=== PATIENT | female | born 1990 | race Caucasian/White ===

== ENCOUNTER 2021-03-26 18:11 | Inpatient (IN) ==
[2021-03-26] MEDS ORDERED: Lactated Ringers 1000 ml BAG 1,000 ML IV ONE (19:30)
[2021-03-26] MEDS ORDERED: Buffered Lidocaine 1% SYRIN 1 ml INTRADERM ONE (19:30)
[2021-03-26] MEDS ORDERED: Dinoprostone 10 MG VAG.SUPP VAGINAL ONE (19:30)
[2021-03-26] MEDS ORDERED: Lactated Ringers 1000 ml BAG 1,000 ML IV SCH (20:00)
[2021-03-26 20:49] LABS: Urine Benzodiazepine Screen None Detected (None Detect); Urine Cannabinoids Screen None Detected (None Detect); Urine Opiates Screen None Detected (None Detect)
[2021-03-26 21:48] LABS: ABS Lymphocytes 1.7 10^3/ul (1.0-4.8); ABS Neutrophils 13.9 10^3/ul (1.5-7.7); Eosinophil % 0.3 %; Hematocrit 35 % (35-47); Hemoglobin 12.1 g/dL (12.0-16.0); Lymphocyte % 10.3 %; Mean Corpuscular HGB Conc 35 g/dL (31-36); Mean Corpuscular Hemoglobin 32 pg (27-31); Mean Corpuscular Volume 93 fL (80-97); Mean Platelet Volume 9.4 fL (7.4-10.4); Platelet Count 232 10^3/uL (150-450); Red Blood Count 3.77 10^6 /uL (3.70-4.87); Red Cell Distribution Width 13 % (10-15); White Blood Count 16.7 10^3/uL (3.5-10.8)
[2021-03-26 22:03] LABS: Albumin 3.4 g/dL (3.2-5.2); Calcium 9.4 mg/dL (8.6-10.3); Potassium 3.9 mmol/L (3.5-5.0); Total Bilirubin 0.4 mg/dL (0.2-1.0)
[2021-03-26 22:09] LABS: Albumin/Globulin Ratio 1.4 (1-3); EGFR African American 122.9 (>60); EGFR Non-African American 101.6 (>60); Globulin 2.5 g/dL (2-4); Total Protein 5.9 g/dL (6.4-8.9)
[2021-03-27] MEDS ORDERED: Oxytocin in LR 20 UNITS/1,000 ML BAG IVPB SCH (11:00)
[2021-03-28] MEDS ORDERED: OBEPIDURAL 250 ML EPIDURAL ONE (00:16)
[2021-03-28] MEDS ORDERED: EPHEDrine (Pressors) 50 MG/ML VIAL IV PUSH PRN ×2 (01:28)
[2021-03-28] MEDS ORDERED: Phenylephrine 40 mcg/mL 10mL (400mcg) SYRINGE IV PUSH PRN ×2 (01:28)
[2021-03-28] MEDS ORDERED: Sodium Citrate/Citric Acid LIQ 15 ML UDC PO PRN (01:28)
[2021-03-28] MEDS ORDERED: Lactated Ringers 1000 ml BAG 1,000 ML IV ONE (01:28)
[2021-03-28] MEDS ORDERED: Lactated Ringers 1000 ml BAG 500 ML IV PRN ×2 (01:28)
[2021-03-28] MEDS ORDERED: Lactated Ringers 1000 ml BAG 1,000 ML IV SCH ×2 (02:00→23:00)
[2021-03-28 02:33] LABS: Urine Appearance Clear; Urine Bilirubin Negative (Negative); Urine Blood 2+ (Negative); Urine Color Straw; Urine Glucose Negative (Negative); Urine Ketones Negative (Negative); Urine Nitrite Negative (Negative); Urine Protein Negative (Negative); Urine Specific Gravity 1.003 (1.002-1.030); Urine Urobilinogen Negative (Negative)
[2021-03-28 03:01] LABS: Urine Bacteria Absent (Absent); Urine Red Blood Cell Trace(0-2/hpf) (Absent); Urine Squamous Epithelial Cell Present (Absent); Urine White Blood Cell Absent (Absent)
[2021-03-28] MEDS: OBEPIDURAL 250 ML EPIDURAL SCH (07:16)
[2021-03-28] MEDS ORDERED: Oxytocin in LR 20 UNITS/1,000 ML BAG IVPB ONE (09:56)
[2021-03-28] MEDS ORDERED: Oxytocin in LR 20 UNITS/1,000 ML BAG IVPB SCH ×2 (10:00→23:00)
[2021-03-28] MEDS: Ampicillin ADVAN 2 GM in NS 0.9% 100 ml BAG 100 ML IVPB SCH (18:24)
[2021-03-28] MEDS ORDERED: NS 0.9% IVPB ONE (18:30)
[2021-03-28] MEDS ORDERED: GENTAMICIN ADULT IVPB ONE (18:30)
[2021-03-28] MEDS ORDERED: Glycerin ADULT 2.4 gm SUPP PR PRN (22:11)
[2021-03-28] MEDS ORDERED: Methylergonovine 0.2 mg AMPULE 1 ml AMP IM ONE (22:14)
[2021-03-28] MEDS: Dibucaine 1% OINT 28.35 GM TUBE PR PRN (22:46)
[2021-03-28] MEDS: Witch Hazel PAD JAR TOPICAL PRN (22:46)
[2021-03-29] MEDS: Ampicillin ADVAN 2 GM in NS 0.9% 100 ml BAG 100 ML IVPB SCH ×4 (00:06→18:07)
[2021-03-29] MEDS ORDERED: Lidocaine 1% VIAL 10 MG/ML VIAL ONE (02:13)
[2021-03-29 06:06] LABS: Hematocrit 28 % (35-47); Hemoglobin 9.5 g/dL (12.0-16.0); Mean Corpuscular HGB Conc 34 g/dL (31-36); Mean Corpuscular Hemoglobin 32 pg (27-31); Mean Corpuscular Volume 94 fL (80-97); Mean Platelet Volume 9.1 fL (7.4-10.4); Platelet Count 177 10^3/uL (150-450); Red Blood Count 2.95 10^6 /uL (3.70-4.87); Red Cell Distribution Width 13 % (10-15)
[2021-03-29 06:25] LABS: ABS Basophils 0.1 10^3/ul (0-0.2); ABS Lymphocytes 1.8 10^3/ul (1.0-4.8); ABS Monocytes 1.4 10^3/ul (0-0.8); ABS Neutrophils 24.7 10^3/ul (1.5-7.7); Lymphocyte % 6.4 %
[2021-03-29] MEDS: Dibucaine 1% OINT 28.35 GM TUBE PR PRN ×2 (16:06→23:30)
[2021-03-30] MEDS: Ampicillin ADVAN 2 GM in NS 0.9% 100 ml BAG 100 ML IVPB SCH ×2 (01:23→03:09)
[2021-03-30] MEDS: OBEPIDURAL 250 ML EPIDURAL SCH (03:02)
[2021-03-30 07:55] VITALS: BP 106/51
[2021-03-30] MEDS: Dibucaine 1% OINT 28.35 GM TUBE PR PRN (08:01)
[2021-03-30] MEDS: Witch Hazel PAD JAR TOPICAL PRN (08:01)
== END 2021-03-30 19:22 | disposition home or self-care (01) | DRG 560 ==
LOC: MCHOBOUT 18:11 → MCHOB 19:29
PROVIDERS: ADMIT Midwife; ATTEND Midwife